=== PATIENT | female | born 1990 | race Caucasian/White ===

== ENCOUNTER 2017-07-19 12:05 | Observation (INO) | payer OTHER ==
[~2017-07-19] VITALS: Ht 160 cm; Wt 72.6 kg
[2017-07-19] MEDS ORDERED: PREN1TAB80 PO (12:54)
[2017-07-19 13:20] VITALS: BP 111/59
[2017-07-19] MEDS: ACETAMINOPHEN 500 MG TABLET PO ONE (13:34)
[2017-07-19 13:40] LABS: HEMATOCRIT 31.3 % (36-46); HEMOGLOBIN 10.7 g/dL (12.0-16.0); MEAN CORPUSCULAR HEMOGLOBIN 29.7 pg (26.0-34.0); MEAN CORPUSCULAR HGB CONC 34.1 G/dL (31.0-37.0); MEAN CORPUSCULAR VOLUME 87 fL (80-100); PLATELET COUNT (AUTO)-OB 200 K/uL (150-450); RED BLOOD CELL COUNT(AUTO) 3.58 MIL/uL (4.00-5.20); RED CELL DISTRIBUTION WIDTH 13.6 % (11.5-14.5)
[2017-07-19] MEDS: PSEUDOEPHEDRINE HCL 30 MG TABLET PO ONE (14:12)
[2017-07-19 14:24] LABS: BAND NEUTROPHILS % (MANUAL) 4 % (1-5); EOSINOPHILS % (MANUAL) 2 % (1-6); LYMPHOCYTES % (MANUAL) 20 % (22-44); MONOCYTES % (MANUAL) 8 % (2-9); SEGMENTED NEUTROPHILS % 66 % (40-70)
[2017-07-19 14:40] LABS: INFLUENZA TYPE A NEGATIVE FOR TYPE A (NEGATIVE); INFLUENZA TYPE B POSITIVE FOR TYPE B (NEGATIVE)
== END 2017-07-19 15:05 | disposition home or self-care (01) ==
LOC: 4S 12:05
PROVIDERS: ADMIT Obstetrics & Gynecology; ATTEND Obstetrics & Gynecology
DX: O26.893 Other specified pregnancy related conditions, third trimester (principal); R05 Cough; O75.2 Pyrexia during labor, not elsewhere classified; J34.89 Other specified disorders of nose and nasal sinuses; Z3A.28 28 weeks gestation of pregnancy
CPT/HCPCS: 36415; 59025; 85025; 87804; G0378